=== PATIENT | female | born 1965 | race Caucasian/White ===

== ENCOUNTER → 2020-09-24 12:01 | Outpatient (CLI) | payer OTHER, SELFPAY ==
--- NOTE | ~2020-09-24 | MM_ITS ---
EXAMINATION: MM screening ra BI w calin HISTORY: Screening mammogram TECHNIQUE: Craniocaudal and mediolateral oblique 3-D tomosynthesis images were obtained and synthetic 2-D images were generated. CAD analysis was submitted and interpreted. COMPARISON: 08/08/2019 bilateral digital screening mammogram 07/12/2018 diagnostic right digital mammogram 07/03/2018, 06/20/2017 bilateral digital screening mammogram examinations BREAST PARENCHYMAL COMPOSITION: There are scattered areas of fibroglandular density. FINDINGS: There is no evidence of suspicious mass, calcification, or architectural distortion to sugg est malignancy in either breast. There has been no suspicious interval change. IMPRESSION: 1. No mammographic evidence of malignancy. 2. Recommend routine screening mammography in one year. BI-RADS Category 1: Negative Reviewed, dictated and finalized at location A. L LOT OPERATOR
--- NOTE | ~2020-09-24 | DEXA_ITS ---
Bone Density Report Name: Bjorn Quezada Age: 55 Sex: Female Ethnicity: White Date of : 1965 Indication: osteopenia; postmenopausal Referring Provider: URIEL BERRY Study: Bone densitometry was performed. Exam Date: September 24, 2020 Accession number: [id number] Bone Density: Region BMD T-score Z-score Classification AP Spine (L1-L4) 0.882 -1.5 -0.6 Osteopenia Femoral Neck (Left) 0.758 -0.8 0.1 Normal Total Hip (Left) 0.996 0.4 1.0 Normal Femoral Neck (Right) 0.742 -1.0 0.0 Normal Total Hip (Right) 1.022 0.7 1.2 Normal Total Hip Mean 1.009 0.6 1.1 Normal World Health Organization criteria for BMD impression classify patients as: Normal (T-score at or above -1.0), Osteopenia (T-score between -1.0 and -2.5), or Osteoporosis (T-score at or below -2.5). 10-year Fracture Risk(1): Major Osteoporotic Fracture 4.2% Hip Fracture 0.2% Reported Risk Factors: [place] (), Neck BMD=0.742, BMI=46.3 (1) FRAX(R) Version 3.08. Fracture probability calculated for an untreated patient. Fracture probability may be lower if the patient has received treatment. Previous Exams: Region Exam Age BMD T-score BMD Change BMD Change Date g/cm2 vs Baseline vs Previous AP Spine(L1-L4) 09/24/2020 55 0.882 -1.5 -0.031* -0.031* 07/12/2018 52 0.913 -1.2 Total Hip(Left) 09/24/2020 55 0.996 0.4 -0.075* -0.075* 07/12/2018 52 1.071 1.1 Total Hip(Right) 09/24/2020 55 1.022 0.7 -0.054* -0.054* 07/12/2018 52 1.076 1.1 *Denotes significance at 95% confidence level, LSC for AP Spine = 0.022 g/cm2, LSC for Total Hip = 0.027 g/cm2 Clinical Information Provided by Patient: Has used the following medications: Vitamin D Patient maximum height was 61 Menopause Age: 51 No regular weight bearing exercise Drinks caffeinated beverages Onset of menses at age 14 Number of children 0 Impression: The patient has low bone mass, based on the Total Spine T-score. The patient has an estimated ten-year risk of hip fracture of 0.2% and an estimated ten-year risk of major fracture of 4.2%, based on the WHO FRAX algorithm. The BMD for the AP Spine(L1-L4) decreased, changing by -0.031 since the last DXA exam. The BMD for the Total Hip(Left) decreased, changing by -0.075 since the last DXA exam. The BMD for the Total Hip(Right) decreased, changing by -0.054 since the last DXA exam. Discussion: BONE
== END ==
PROVIDERS: Visit Provider Obstetrics & Gynecology Gynecology
DX: Z12.31 Encounter for screening mammogram for malignant neoplasm of breast (principal); Z78.0 Asymptomatic menopausal state; M85.88 Other specified disorders of bone density and structure, other site
CPT/HCPCS: 77063; 77067; 77080

== ENCOUNTER → 2021-09-28 10:43 | Outpatient (CLI) | payer OTHER, SELFPAY ==
--- NOTE | ~2021-09-28 | MM_ITS ---
EXAMINATION: MM screening ra BI w calin HISTORY: Screening TECHNIQUE: Craniocaudal and mediolateral oblique 3-D tomosynthesis images were obtained and synthetic 2-D images were generated. CAD analysis was submitted and interpreted. COMPARISON: Comparison to multiple prior studies sequentially, with oldest reviewed study dated 10/2015. BREAST PARENCHYMAL COMPOSITION: There are scattered areas of fibroglandular density. FINDINGS: There is no evidence of suspicious mass, calcification, or architectural distortion to sugg est malignancy in either breast. There has been no suspicious interval change. IMPRESSION: 1. No mammographic evidence of malignancy. 2. Recommend routine screening mammography in one year. BI-RADS Category 1: Negative Reviewed, dictated and finalized at location A. ER/WAITRESS CABIN CLASS
== END ==
PROVIDERS: Visit Provider Obstetrics & Gynecology Gynecology
DX: Z12.31 Encounter for screening mammogram for malignant neoplasm of breast (principal)
CPT/HCPCS: 77063; 77067

== ENCOUNTER → 2022-11-24 10:49 | Outpatient (CLI) | payer OTHER, SELFPAY ==
--- NOTE | ~2022-11-24 | DEXA_ITS ---
Bone Density Report Name: Bjorn Quezada Age: 57 Sex: Female Ethnicity: White Date of : 1965 Indication: osteopenia; postmenopausal Referring Provider: URIEL BERRY Study: Bone densitometry was performed. Exam Date: November 24, 2022 Accession number: [id number] Bone Density: Region BMD T-score Z-score Classification AP Spine (L1-L4) 0.872 -1.6 -0.5 Osteopenia Femoral Neck (Left) 0.741 -1.0 0.1 Normal Total Hip (Left) 0.996 0.4 1.1 Normal Femoral Neck (Right) 0.691 -1.4 -0.4 Osteopenia Total Hip (Right) 1.017 0.6 1.3 Normal Total Hip Mean 1.007 0.5 1.2 Normal World Health Organization criteria for BMD impression classify patients as: Normal (T-score at or above -1.0), Osteopenia (T-score between -1.0 and -2.5), or Osteoporosis (T-score at or below -2.5). 10-year Fracture Risk(1): Major Osteoporotic Fracture 5.3% Hip Fracture 0.3% Reported Risk Factors: [place] (), Neck BMD=0.691, BMI=48.7 (1) FRAX(R) Version 3.08. Fracture probability calculated for an untreated patient. Fracture probability may be lower if the patient has received treatment. Previous Exams: Region Exam Age BMD T-score BMD Change BMD Change Date g/cm2 vs Baseline vs Previous AP Spine(L1-L4) 11/24/2022 57 0.872 -1.6 -0.041* -0.010 09/24/2020 55 0.882 -1.5 -0.031* -0.031* 07/12/2018 52 0.913 -1.2 Total Hip(Left) 11/24/2022 57 0.996 0.4 -0.074* 0.001 09/24/2020 55 0.996 0.4 -0.075* -0.075* 07/12/2018 52 1.071 1.1 Total Hip(Right) 11/24/2022 57 1.017 0.6 -0.059* -0.005 09/24/2020 55 1.022 0.7 -0.054* -0.054* 07/12/2018 52 1.076 1.1 *Denotes significance at 95% confidence level, LSC for AP Spine = 0.022 g/cm2, LSC for Total Hip = 0.027 g/cm2 Clinical Information Provided by Patient: Has used the following medications: Vitamin D, Calcium Patient maximum height was 61 Menopause Age: 51 No regular weight bearing exercise Drinks caffeinated beverages Onset of menses at age 14 Number of children 0 Impression: The patient has low bone mass, based on the Total Spine T-score. The patient has an estimated ten-year risk of hip fracture of 0.3% and an estimated ten-year risk of major fracture of 5.3%, based on the WHO FRAX algorithm. No significant bone loss was observed. Discussion: BONE DENSITY IS LOW AT O
--- NOTE | ~2022-11-24 | MM_ITS ---
EXAMINATION: MM screening ra BI w calin HISTORY: Screening TECHNIQUE: Craniocaudal and mediolateral oblique 3-D tomosynthesis images were obtained and synthetic 2-D images were generated. CAD analysis was submitted and interpreted. COMPARISON: Comparison to multiple prior studies sequentially, with oldest reviewed study dated 06/20. BREAST PARENCHYMAL COMPOSITION: There are scattered areas of fibroglandular density. FINDINGS: There is no evidence of suspicious mass, calcification, or architectural distortion to sugg est malignancy in either breast. There has been no suspicious interval change. IMPRESSION: 1. No mammographic evidence of malignancy. 2. Recommend routine screening mammography in one year. BI-RADS Category 1: Negative Reviewed, dictated and finalized at location A. N TRAWLER HAND
== END ==
PROVIDERS: PCP Internal Medicine; Visit Provider Obstetrics & Gynecology Gynecology
DX: Z12.31 Encounter for screening mammogram for malignant neoplasm of breast (principal); M85.88 Other specified disorders of bone density and structure, other site; Z78.0 Asymptomatic menopausal state; M85.89 Other specified disorders of bone density and structure, multiple sites
CPT/HCPCS: 77063; 77067; 77080

== ENCOUNTER 2024-02-20 10:34 | Outpatient (CLI) | payer OTHER, SELFPAY ==
--- NOTE | ~2024-02-20 | MM_ITS ---
EXAMINATION: MM screening ra BI w calin HISTORY: Screening mammogram TECHNIQUE: Craniocaudal and mediolateral oblique 3-D tomosynthesis images were obtained and synthetic 2-D images were generated. CAD analysis was submitted and interpreted. COMPARISON: November 24, 2022, September 28, 2021 bilateral screening mammogram examinations BREAST PARENCHYMAL COMPOSITION: There are scattered areas of fibroglandular density. FINDINGS: Stable benign-appearing posterior upper-outer quadrant bilateral small circumscribed intram ammary lymph nodes. There is no evidence of suspicious mass, calcification, or architectural distorti on to suggest malignancy in either breast. There has been no suspicious interval change. IMPRESSION: 1. No mammographic evidence of malignancy. 2. Recommend routine screening mammography in one year. BI-RADS Category 2: Benign finding(s). Reviewed, dictated and finalized at location A.
== END 2024-02-20 10:35 ==
LOC: MICIMG 10:35
PROVIDERS: PCP Nurse Practitioner; Visit Provider Nurse Practitioner
DX: Z12.31 Encounter for screening mammogram for malignant neoplasm of breast (principal)
CPT/HCPCS: 77063; 77067

== ENCOUNTER 2025-03-04 11:35 | Outpatient (CLI) | payer OTHER, SELFPAY ==
--- NOTE | ~2025-03-04 | MM_ITS ---
EXAMINATION: MM screening [facility] BI w calin HISTORY: Screening mammogram TECHNIQUE: Craniocaudal and mediolateral oblique 3-D tomosynthesis images were obtained and synthetic 2-D images were generated. CAD analysis was submitted and interpreted. COMPARISON: 02/20/2024, 11/24/2022, 09/28/2021, 09/24/2020 BREAST PARENCHYMAL COMPOSITION:Not Dense. There are scattered areas of fibroglandular density. FINDINGS: No suspicious mass, calcification, or architectural distortion are identified in either miquel ast to suggest malignancy. There has been no suspicious interval change. IMPRESSION: No mammographic evidence of malignancy. Recommend routine screening mammography in one year. BI-RADS Category 1: Negative Reviewed, dictated and finalized at location .
--- NOTE | ~2025-03-04 | DEXA_ITS ---
Bone Density Report Name: ROMARIO SRINIVASAN Age: 59 Sex: Female Ethnicity: White Date of : 1965 Indication: postmenopausal; screening for osteoporosis; height loss; Referring Provider: Karen Garcia Study: Bone densitometry was performed. Exam Date: March 04, 2025 Accession number: [id number] Bone Density: Region BMD T-score Z-score Classification AP Spine(L1-L4) 0.873 -1.6 -0.3 Osteopenia Femoral Neck (Left) 0.665 -1.7 -0.5 Osteopenia Total Hip (Left) 0.900 -0.3 0.5 Normal Femoral Neck (Right) 0.664 -1.7 -0.5 Osteopenia Total Hip (Right) 0.967 0.2 1.0 Normal Femoral Neck Mean 0.665 -1.7 -0.5 Osteopenia Total Hip Mean 0.933 -0.1 0.7 Normal World Health Organization criteria for BMD impression classify patients as: Normal (T-score at or above -1.0), Osteopenia (T-score between -1.0 and -2.5), or Osteoporosis (T-score at or below -2.5). Clinical Information Provided by Patient: Has used the following medications: Vitamin D, Calcium Patient maximum height was 61 Menopause Age: 51 No regular weight bearing exercise Drinks caffeinated beverages Onset of menses at age 14 Number of children 0 Impression: The patient has low bone mass, based on the Left Femoral Neck T-score. Discussion: BONE DENSITY IS LOW AT ONE OR MORE SKELETAL SITES. This patient's lowest T-score is low at one or more skeletal sites. It meets the World Health Organization's (WHO) criteria for ?low bone mass? (T-score between -1.0 and -2.5). The patient's 10-year risk of fracture as calculated by FRAX is less than the threshold where pharmacological therapy is recommended by the National Osteoporosis Foundation (NOF). However, all treatment decisions require clinical judgment and consideration of individual patient factors, including patient preferences, comorbidities, previous drug use, risk factors not captured in the FRAX model (e.g., frailty, falls, vitamin D deficiency, increased bone turnover, interval significant decline in bone density) and possible under or overestimation of fracture risk by FRAX. The patient should follow a healthful lifestyle (good nutrition with adequate calcium and vitamin D, and appropriate weight-bearing exercise). Follow-Up: Consider repeating this study in 2 to 3 years to reassess this patient's status, or sooner if there is some new clinical indication. Reported by: TYSON on 03/04/2025 12:11:00 PM. Reviewed, dictated and finalized at location A.
--- OUTSIDE RECORDS SUMMARY | 2025-03-04 11:42 | XMS_ITS | Encounter Summary ---
Author Organization [facility] Address [address] [place] [address] Phone Care Team Providers Care Jacquard Lace Weaver Name Role Phone Chang Faye MD Primary Care Provider Karen Garcia MD Unavailable Gene Marie MD Unavailable Reason for Visit * Reason Comments Medication Refill Encounter Details Date Type Department Care Team (Late st Contact Info) Description 11/02/2023 Refill [facility] - [facility] [address] [place] [address] Abdiaziz Nguyen MD [address] [place] [address] Medication Refill Social History Tobacco Use Types Packs/Day Years Used Date Smoking Tobacco: Former Cigarettes 1 7 0 03/01/1982 - 03/01/1989 Smokeless Tobacco: Never Alcohol Use Standard Drinks/Week Comments Yes 0 (1 standard drink = 0.6 oz pur e alcohol) OCCASIONAL PHQ-2 Answer Date Recorded Total Score - Questions 1-9 0 07/24 Education Answer Date Recorded What is the highest level of school you have completed or the highest degree you have received? 12th grade 07/22/2022 Sexually Active Control Partners Comments Yes Male Comments No Sex and Gender Information Value Date Recorded Sex Assigned at Not on file Legal Sex Female 8:58 PM CDT Gender Identity Not on file Sexual Orientation Not on file documented as of this encounter Miscellaneous Notes * Telephone Encounter - Ashely Novoa RN - 11/02/2023 10:28 AM CST Medication failed the protocol, provider to review and approve the medication order if appropriate. Requested Prescriptions Pending Prescriptions Disp Refills pravastatin (PRAVACHOL) 40 MG Tablet [Pharmacy Med Name: PRAVASTATIN 40MG TABLETS] 90 Tablet 3 Sig: TAKE 1 TABLET BY MOUTH DAILY Hmg CoA Reductase Inhibitors Protocol Failed - 11/02/2023 8:38 AM Failed - Lipid panel in past 12 months LDL Date Value Ref Range Status 08/01/2023 128 0 - 130 mg/dL Final Failed - CMP in past 12 months No results found for: SODIUM , POTASSIUM , CHLORIDE , CO2VEN , ANIONGAP , GLUCOSE , BUN , CREATININE , BCRATIO8 , TOTALPROTEIN , ALBUMIN , AGRT , AGRATIO , CALCIUM , TBIL , SGOTAST , SGPTALT , ALKALINEPHO , GFRNA , GFRA , GFRES , CMPREQFAST , CMPFAST Passed - Visit with relevant provider in past 12 months or upcoming 90 days Recent Visits Date Type Provider Dept 08/03/23 Office Visit Chang Faye MD [facility] [place] Showing recent visits within past 365 days and meeting all other requirements Future Appointments No visits were found meeting these conditions. Showing future appointments within next 90 days and meeting all other requirements DITER documented in this encounter Plan of Treatment Upcoming Encounters Date Type Department Care Team (Late st Contact Info) Description 08/21/2025 9:00 AM CDT Lab [facility] [address] [address] [place] Garcia Lab/Ancillary 08/28/2025 12:30 PM EXPEDITER Office Visit [facility] - Family Medicine - [place] [address] [facility] [place] [address] Chang Faye MD [address] [place] [address] documented as of this encounter Visit Diagnoses Not on filedocumented in this encounter Additional Health Concerns Assessment Noted Time PHQ-9 Depression Total Score: 0 08/03/20 2:02 PM CDT documented as of this encounter Care Teams Jacquard Lace Weaver Relationship Specialty Start Date End Date Chang Faye MD [address] [address] PCP - General Family Medicine 09/12/15 Karen Garcia MD [address] [facility] [address] [place] [address] Obstetrics & Gynecology 01/16/18 Gene Marie MD [address] [place] [address] Consulting Physician Pulmonary Disease 12/01/22 documented as of this encounter
--- OUTSIDE RECORDS SUMMARY | 2025-03-04 11:42 | XMS_ITS | Clinical Summary ---
Author Organization [facility] Address [address] [address] Phone Care Team Providers Care Customer Support Specialist Name Role Phone Chang Faye MD Primary Care Provider [phone] Karen Garcia MD Unavailable [phone] Gene Marie MD Unavailable Allergies No known active allergies Medications betamethasone valerate (VALISONE) 0.1 % Cream Twice a wk 99 03/08/2016 Active losartan potassium-hydroc hlorothiazide (HYZAAR) 100-25 MG Tablet TAKE 1 TABLET BY MOUTH DAILY 30 Tablet 5 09/17/2024 Active pravastatin (PRAVACHOL) 40 MG Tablet TAKE 1 TABLET BY MOUTH DAILY 90 Tablet 3 11/19/2024 Active Active Problems Problem Noted Date Diagnosed Date Screening for colon cancer 11/09/2017 Morbid obesity due to excess calories 01/24/2017 Obstructive sleep apnea syndrome 12/20/2016 Pure hypercholesterolemia 04/28/2016 Vitamin D deficiency HTN (hypertension) Immunizations Immunization Administration Dates Next Due Covid-19, Mrna, Lnp-s, Pf, 3 0 Mcg/0.3 Ml Dose (Desigual) 09/30/2021 Influenza Vaccine greater than 3 yrs 08/24/2014 Influenza Vaccine, Quadrivalent, PF 07/24,07/28/2022,07/15/2021,07/01,08/24/2019,08/08/2018,11/09/2017 ,10/27/2016,10/27/2015 Influenza, Seasonal, Injecta ble, Undefined 08/24/2014,10/09/2012 Influenza,Split Virus,Trivalent,Injectable,PF 08/22/2024 PUR FLU 3+ YRS PRES FREE QUAD IM 10/27/2016,01/201610/27/2016 TDAP Vaccine 12/10/2019 Family History Medical History Relation Name Comments Heart Attack Father Cancer Mother Multiple Myelom a Colon Polyps Mother Colon Polyps Sister Relation Name Status Comments Father Mother Sister Social History Tobacco Use Types Packs/Day Years Used Date Smoking Tobacco: Former Cigarettes 1 7 0 03/01/1982 - 03/01/1989 Smokeless Tobacco: Never Tobacco Cessation:Counseling Given: No Alcohol Use Standard Drinks/Week Comments Yes 0 [...] on file Sexual Orientation Not on file Last Filed Vital Signs Vital Sign Reading Time Taken Comments Blood Pressure 136/70 08/22/2024 12:22 PM CDT Pulse 82 08/22/2024 12:10 PM CDT Temperature 36.4 C (97.6 F) 08/22/2024 12:10 PM CDT Respiratory Rate 18 08/22/2024 12:10 PM CDT Oxygen Saturation 96% 08/22/2024 12:10 PM CDT Inhaled Oxygen Concentration - - Weight 108 kg (238 lb 3.2 oz) 08/22/2024 12:10 P M CDT Height 154.9 cm (5' 1 ) 08/22/2024 12:10 PM CDT Body Mass Index 45.01 08/22/2024 12:10 PM CDT Plan of Treatment Upcoming Encounters Date Type Department Care Team (Late st Contact Info) Description 08/21/2025 9:00 AM CDT Lab [facility] [address] [facility] [address] [address] Lab, Naseem Lab/Ancillary 08/28/2025 12:30 PM CLINICAL PRACTITIONER Office Visit [facility] - Family [facility] [address] [place] [address] Chang Faye MD [address] [address] Health Maintenance Due Date Last Done Comments Hepatitis C Virus (HCV) Screening 1965 Hepatitis B Immunization (1 of 3 - 19+ 3-dose series) 1986 Pap Smear 1988 Cervical Cancer Screening (CCS) 1997 HPV/Cotest 1997 Cologuard 2017 Immunochemical Fecal Occult Blood 2017 Pneumococcal Immunization (50+ years) (1 of 1 - PCV) 2017 Zoster Immunization (1 of 2) 2017 Mammogram 11/24/2023 11/24/2022 SARS-COV-2 Immunization ( season) 2024 09/30/2021, 01/14/2021, 12/25/2020 Colonoscopy 10/10/2028 10/10/2023, 04/05/2018 Colorectal Cancer Screening 10/10/2028 Td Immunization Every 10 Years (Adults With 1 Tdap) 12/10/2029 12/10/2019 Respiratory Syncytial Virus (RSV) Immunization (Adult) (1 - 1-dose 75+ series) 2042 10/10/2023, 04/05/2018 Influenza Immunization Completed 4, 08/03/2023, 07/28/2022, Additional history exists Meningococcal Immunization (ACWY) Aged Out No longer eligible based on patient's age to complete this topic Rotavirus Immunization Aged Out No lo nger eligible based on patient's age to complete this topic Procedures Procedure Name Priority Date/Time Associated Diagnosis Comments MAMMOGRAM BILATERAL GENERIC 11/24/2022 12:00 AM CLINICAL PRACTITIONER from Last 3 Months or Most Recently Relevant to Health Maintenance Results * MAMMOGRAM BILATERAL MISCELLANEOUS (11/24/2022 12:00 AM CLINICAL PRACTITIONER) 11/24/2022 us Provider Scan IMG MAMMO ORDERABLES Final Resul t SCAN from Last 3 Months or Most Recently Relevant to Health Maintenance Insurance [employer] Care Teams Customer Support Specialist Relationship Specialty Start Date End Date Chang Faye MD #[address] [address] PCP - General Family Medicine 09/12/15 Karen Garcia MD [address] [facility] [address] [place] [address] Obstetrics & Gynecology 01/16/18 Gene Marie MD #2 [place] [phone] Consulting Physician Pulmonary Disease 12/01/22
--- OUTSIDE RECORDS SUMMARY | 2025-03-04 11:42 | XMS_ITS | Encounter Summary ---
Author Organization [facility] Address [address] [place] [address] Phone Care Team Providers Care Offal Roller Name Role Phone Chang Faye MD Primary Care Provider [phone] Karen Garcia MD Unavailable [phone] Gene Marie MD Unavailable Reason for Visit * Reason Comments Medication Refill Encounter Details Date Type Department Care Team (Late st Contact Info) Description 11/19/2024 Refill [facility] - Family Medicine - [place] [address] [place] [address] Chang Faye MD #[address] [address] Medication Refill Social History Tobacco Use Types [...] encounter Miscellaneous Notes * Telephone Encounter - Elle Delacruz RN - 11/19/2024 11:04 AM TANK BUILDER SUPERVISOR The original prescription was reordered on 11/19/2024 by Chang Faye MD. Renewing this prescription may not be appropriate. BUILDER SUPERVISOR * Telephone Encounter - Elle Delacruz RN - 11/19/2024 10:51 AM TANK BUILDER SUPERVISOR duplicate BUILDER SUPERVISOR documented in this encounter Plan of Treatment Upcoming Encounters Date Type Department Care Team (Late st Contact Info) Description 08/21/2025 9:[address] [facility] #[address] [address] [facility] Lab/Ancillary 08/28/2025 12:30 PM TANK BUILDER SUPERVISOR Office Visit [facility] - Family Medicine - [place] [address] [place] [address] Chang Faye MD #[address] [address] documented as of this encounter Visit Diagnoses Not on filedocumented in this encounter Additional Health Concerns Assessment Noted Time PHQ-9 Depression Total Score: 0 08/03/20 23 2:02 PM CDT documented as of this encounter Care Teams Offal Roller Relationship Specialty Start Date End Date Chang Faye MD #[address] [address] PCP - General Family Medicine 09/12/15 Karen Garcia MD [address] [address] Obstetrics & Gynecology 01/16/18 Gene Marie MD #2 [place] [address] Consulting Physician Pulmonary Disease 12/01/22 documented as of this encounter
--- OUTSIDE RECORDS SUMMARY | 2025-03-04 11:42 | XMS_ITS | Encounter Summary ---
Author Organization [facility] Address [address] [place] [address] Phone Care Team Providers Care Farm Laborer Name Role Phone Chang Faye MD Primary Care Provider Karen Garcia MD Unavailable Gene Marie MD Unavailable Reason for Visit * Reason Comments Medication Refill Encounter Details Date Type Department Care Team (Late st Contact Info) Description 05/06/2021 Refill [facility]2 [place] [address] Chang Faye MD [address] [address] Medication Refill Social History Tobacco Use Types Packs/Day Years Used Date Smoking Tobacco: Former Cigarettes 1 7 0 03/01/1982 - 03/01/1989 Smokeless Tobacco: Never Alcohol Use Standard Drinks/Week Comments Yes 0 (1 standard drink = 0.6 oz pur e alcohol) OCCASIONAL PHQ-2 Answer Date Recorded Total Score - Questions 1-9 0 11/24 Sexually Active Control Partners Comments Yes Male Comments No Sex and Gender Information Value Date Recorded Sex Assigned at Not on file Legal Sex Female 8:58 PM CDT Gender Identity Not on file Sexual Orientation Not on file COVID-19 Exposure Response Date Recorded In the last month, have you been in contact with someone who was confirmed or suspected to have Coronavirus / COVID-19? No / Unsure 04/20/2021 9:11 AM CDT documented as of this encounter Miscellaneous Notes * Telephone Encounter - Chang Faye MD - 05/06/2021 12:09 PM CDT Prescription approved. Please call in * Telephone Encounter - Ashely Novoa RN - 05/06/2021 11:55 AM CDT Please schedule patient a follow up with PCP, thank you * Telephone Encounter - Ashely Novoa RN - 05/06/2021 11:55 AM CDT Medication failed the protocol, provider to review and approve the medication order if appropriate. Requested Prescriptions Pending Prescriptions Disp Refills pravastatin (PRAVACHOL) 10 MG Tablet [Pharmacy Med Name: PRAVASTATIN 10MG TABLETS] 90 Tablet 1 Sig: TAKE 1 TABLET BY MOUTH DAILY Hmg CoA Reductase Inhibitors Protocol Failed - 05/06/2021 11:54 AM Failed - Lipid panel in past 12 months LDL Date Value Ref Range Status 06/09/2020 139 (A) 0 - 130 mg/dL Final Passed - No positive test in the past 12 months or most recent test was negative Passed - Visit with relevant provider in past 12 months or upcoming 90 days Recent Visits Date Type Provider Dept 06/16/20 Telemedicine [address] F[address] MD [facility] [place] Showing recent visits within past 365 days and meeting all other requirements Future Appointments Date Type Provider Dept 07/01/21 Appointment Clinic, [facility] Nurse Theo Gusman 07/08/21 Appointment Chang Faye MD [facility] [place] Showing future appointments within next 90 days and meeting all other requirements Passed - No active on record losartan potassium-hydrochlorothiazide (HYZAAR) 100-25 MG Tablet [Pharmacy Med Name: LOSARTAN/HCTZ 100/25MG TABLETS] 90 Tablet 1 Sig: TAKE 1 TABLET BY MOUTH DAILY ANGIOTENSIN-II RECEPTOR BLOCKERS-DIURETICS COMBO PROTOCOL Failed - 05/06/2021 11:54 AM Failed - Serum potassium on record in past 12 months No results found for: POTASSIUM, POCTK Failed - Serum sodium on record in past 12 months No results found for: SODIUM Failed - BP on record in the past year Clinician-entered: BP Readings from Last 3 Encounters: 12/10/19 136/68 06/06/19 138/76 05/28/19 130/84 Patient-entered: No data recorded Failed - GFR on record in past 12 months No results found for: GFRNA Passed - No positive test in the past 12 months or most recent test was negative Passed - Visit with relevant provider in past year or upcoming 90 days Recent Visits Date Type Provider Dept 06/16/20 Telemed[address] F[address] [facility] [place] Showing recent visits within past 365 days and meeting all other requirements Future Appointments Date Type Provider Dept 07/01/21 Appointment Clinic, [facility] Nurse [facility] [place] 07/08/21 [address] [facility] [place] Showing future appointments within next 90 days and meeting all other requirements Passed - No active on record documented in this encounter Plan of Treatment Upcoming Encounters Date Type Department Care Team (Late st Contact Info) Description 08/21/2025 9:00 AM CDT Lab [facility] [address] [address] [place] Garcia Lab/Ancillary 08/28/2025 12:30 PM INTELLIGENCE MANAGER Office Visit [facility] - [place] [address]2 [facility] [address] Chang Faye MD [address] [place] [address] documented as of this encounter Visit Diagnoses Not on filedocumented in this encounter Additional Health Concerns Assessment Noted Time PHQ-9 Depression Total Score: 0 12/10/19 9:54 AM INTELLIGENCE MANAGER documented as of this encounter Care Teams Farm Laborer Relationship Specialty Start Date End Date Chang Faye MD [address] [address] PCP - General Family Medicine 09/12/15 Karen Garcia MD [address] [facility] [address] [place], [place] [id number] Obstetrics & Gynecology 01/16/18 Gene Marie MD [address] [place] [address] Consulting Physician Pulmonary Disease 12/01/22 documented as of this encounter
--- OUTSIDE RECORDS SUMMARY | 2025-03-04 11:42 | XMS_ITS | Encounter Summary ---
Author Organization [facility] Address [address] [place] [address] Phone Care Team Providers Care Barber Apprentice Name Role Phone Chang Faye MD Primary Care Provider Karen Garcia MD Unavailable [phone] Gene Marie MD Unavailable Reason for Visit * Reason Comments Medication Refill Encounter Details Date Type Department Care Team (Late st Contact Info) Description 08/23/2023 Refill [facility] - [place] [address] [place] [address] Chang Faye MD [address] [address] Medication Refill Social History Tobacco Use Types [...] Exposure Response Date Recorded In the last 10 days, have yo u been in contact with someone who was confirmed or suspected to have Coronavirus/COVID-19? No / Unsure 08/10/2023 8:20 AM CDT documented as of this encounter Miscellaneous Notes * Telephone Encounter - Ashely Novoa RN - 08/23/2023 4:05 PM CDT Medication failed the protocol, provider to review and approve the medication order if appropriate. Requested Prescriptions Pending Prescriptions Disp Refills losartan potassium-hydrochlorothiazide (HYZAAR) 100-25 MG Tablet [Pharmacy Med Name: LOSARTAN/HCTZ 100/25MG TABLETS] 90 Tablet 3 Sig: TAKE 1 TABLET BY MOUTH DAILY ANGIOTENSIN-II RECEPTOR BLOCKERS-DIURETICS COMBO PROTOCOL Failed - 08/23/2023 9:20 AM Failed - Serum potassium on record in past 12 months No results found for: POTASSIUM, POCTK Failed - Serum sodium on record in past 12 months No results found for: SODIUM Failed - GFR on record in past 12 months No results found for: GFRNA Passed - BP on record in the past year Clinician-entered: BP Readings from Last 3 Encounters: 08/03/23 136/71 12/01/22 118/64 07/28/22 140/76 Patient-entered: No data recorded Passed - No positive test in the past 12 months or most recent test was negative Passed - Visit with relevant provider in past year or upcoming 90 days Recent Visits Date Type Provider Dept 08/03/23 Office Visit Chang Faye MD [facility] [place] Showing recent visits within past 365 [...] [facility] #[address] [address] [place] Garcia Lab/Ancillary 08/28/2025 12:30 PM CERTIFIED MEDICAL ASST Office Visit [facility] - Family [facility] [place] [address] [place] [address] Chang Faye MD [address] [facility] [address] [place] [address] documented as of this encounter Visit Diagnoses Not on filedocumented in this encounter Additional Health Concerns Assessment Noted Time PHQ-9 Depression Total Score: 0 08/03/20 2:02 PM CDT documented as of this encounter Care Teams Barber Apprentice Relationship Specialty Start Date End Date Chang Faye MD [address] [facility] [place] [address] PCP - General Family Medicine 09/12/15 Karen Garcia MD [address] [facility] [address] [place] [address] Obstetrics & Gynecology 01/16/18 Gene Marie MD [address] [place] [address] Consulting Physician Pulmonary Disease 12/01/22 documented as of this encounter
--- OUTSIDE RECORDS SUMMARY | 2025-03-04 11:42 | XMS_ITS | Encounter Summary ---
Author Organization [facility] Address [address] [place] [address] Phone Care Team Providers Care Cryptanalyst Name Role Phone Chang Faye MD Primary Care Provider [phone] Karen Garcia MD Unavailable [phone] Gene Marie MD Unavailable Reason for Visit * Reason Comments Medication Refill Encounter Details Date Type Department Care Team (Late st Contact Info) Description 10/11/2022 Refill [facility] - [facility] - [place] #2 [place] [address] Chang Faye MD #[address] [address] Medication Refill Social History Tobacco Use Types Packs/Day Years Used Date Smoking Tobacco: Former Cigarettes 1 7 0 03/01/1982 - 03/01/1989 Smokeless Tobacco: Never Alcohol Use Standard Drinks/Week Comments Yes 0 (1 standard drink = 0.6 oz pur e alcohol) OCCASIONAL PHQ-2 Answer Date Recorded Total Score - Questions 1-9 0 06/25 Education Answer Date Recorded What is the [...] Telephone Encounter - Ashely Novoa RN - 10/11/2022 3:43 PM CST Medication failed the protocol, provider to review and approve the medication order if appropriate. Requested Prescriptions Pending Prescriptions Disp Refills pravastatin (PRAVACHOL) 40 MG Tablet [Pharmacy Med Name: PRAVASTATIN 40MG TABLETS] 90 Tablet 3 Sig: Take 1 Tablet by mouth daily. Hmg CoA Reductase Inhibitors Protocol Failed - 10/11/2022 11:17 AM Failed - Lipid panel in past 12 months LDL Date Value Ref Range Status 07/21/2022 121 0 - 130 mg/dL Final Passed - No positive test in the past 12 months or most recent test was negative Passed - Visit with relevant provider in past 12 months or upcoming 90 days Recent Visits Date Type Provider Dept 07/28/22 Office Visit Chang Faye MD [facility] [place] Showing recent visits within past 365 days and meeting all other requirements Future Appointments No visits were found meeting these conditions. Showing future appointments within next 90 days and meeting all other requirements Passed - No active on record ET POST INSPECTOR documented in this encounter Plan of Treatment Upcoming Encounters Date Type Department Care Team (Late st Contact Info) Description 08/21/2025 9:00 AM CDT Lab [facility] #[address] [address] [place] Garcia Lab/Ancillary 08/28/2025 12:30 PM PELLET POST INSPECTOR Office Visit [facility] - [facility] - [place] [address]2 [place] [address] Chang Faye MD #[address] [address] documented as of this encounter Visit Diagnoses Not on filedocumented in this encounter Additional Health Concerns Assessment Noted Time PHQ-9 Depression Total Score: 0 07/15/20 10:00 AM CDT documented as of this encounter Care Teams Cryptanalyst Relationship Specialty Start Date End Date Chang Faye MD [address] [facility] [address] [place] [address] PCP - General Family Medicine 09/12/15 Karen Garcia MD [address] [facility] [address] [place], [place] [id number] Obstetrics & Gynecology 01/16/18 Gene Marie MD #2 [place] [id number] Consulting Physician Pulmonary Disease 12/01/22 documented as of this encounter
== END 2025-03-04 11:36 | disposition home or self-care (01) ==
PROVIDERS: PCP Internal Medicine; Visit Provider Nurse Practitioner Women's Health
DX: Z12.31 Encounter for screening mammogram for malignant neoplasm of breast (principal); Z78.0 Asymptomatic menopausal state; M85.89 Other specified disorders of bone density and structure, multiple sites
CPT/HCPCS: 77063; 77067; 77080